=== PATIENT | male | born 1985 | race Hispanic/Latino ===

== ENCOUNTER 2024-10-18 17:13 | Emergency (ER) | payer SELFPAY ==
--- NOTE | ~2024-10-18 | XR_ITS ---
HISTORY: pain generalized rt foot. no injury COMPARISON: None TECHNIQUE: 3 views of the right foot were performed FINDINGS: No acute fracture or dislocation is appreciated. No significant degenerative disease is noted. The base of the fifth metatarsal is intact. No calcaneal spur is noted. No significant soft tissue swelling is present. IMPRESSION: Unremarkable radiographic evaluation of the right foot, as detailed above Reviewed, dictated and finalized at location A. IMPRESSION: Unremarkable radiographic evaluation of the right foot, as detaile d above
[2024-10-18 17:24] VITALS: BP 151/98; PULSE 108; RESP 16; TEMP 36.4; O2SAT 98
--- NOTE | 2024-10-18 17:38 | ED.LOWEXIN ---
HPI - Extremity Injury (Lower) General Chief Complaint: Extremity Injury, Lower Stated Complaint: FOOT PAIN Source: patient Mode of arrival: ambulatory Limitations: no limitations History of Present Illness HPI Narrative: Patient is a 39 year old male who presents to the clinic with complaints of right foot pain with walking for 8 days. He denies having any injury. He states that the last time this happened was 6 to 7 years ago. At that time he was diagnosed with high triglycerides and told it was related to a circulation issue. He has not been taking his cholesterol medication. Denies any numbness, tingling, or radiation of pain. Related Data Home Medications ?Medication ?Instructions ?Recorded ?Confirmed ?Last Taken ?Type No Home Medications 10/18/24 10/18/24 Unknown History Allergies Allergy/AdvReac Type Severity Reaction Status Date / Time No Known Drug Allergies Allergy none Verified 10/18/24 17:37 Review of Systems Review of Systems: CONSTITUTIONAL: Denies body aches, fever, chills EYES: Denies visual changes ENT: Denies rhinorrhea, congestion CARDIOVASCULAR: Denies chest pain, palpitations, or edema. RESPIRATORY: Denies cough or dyspnea. SKIN: Denies rash, itching, or wounds. MUSCULOSKELETAL: Denies back pain, joint pain, or myalgia. Reports right foot pain. NEUROLOGIC: Denies headache, numbness, tingling, or weakness. All systems reviewed & are unremarkable except as noted in HPI and below PMFSH Comments At time of signature, I have reviewed and agree with nursing past medical, surgical, social and family history unless otherwise noted. Please see nursing chart for further information. There is no relevant family history pertinent to the presenting complaint. Exam Narrative: MUSCULOSKELETAL EXAM GENERAL: Well-appearing, well-nourished, and in no acute distress. HEAD: Normocephalic, atraumatic. NECK: Supple. CHEST: Speaks in full sentences. No respiratory distress. HEART: Regular rate and rhythm. Normal and equal peripheral pulses. EXTREMITIES: Right foot has normal strength and sensation, normal range of motion with flexion/extension, but endorses pain with walking. No edema or ecchymosis, No point tenderness. No open wounds, skin tenting, or obvious deformity; alignment normal, pulse palpable and equal bilaterally, skin warm, dry, pink. Capillary refill less than 3 seconds. Distal sensation intact. SKIN: Warm, dry, no rash. NEURO: Alert and oriented x3. PSYCH: Normal mood and affect Course Course Level of Care: Express Care Visit Vital Signs Vital signs: Vital Signs Temperature 97.5 F L 10/18/24 17:24 Pulse Rate 108 H 10/18/24 17:24 Respiratory Rate 16 10/18/24 17:24 Blood Pressure 151/98 H 10/18/24 17:24 Pulse Oximetry 98 10/18/24 17:24 Oxygen Delivery Room Air 10/18/24 17:24 Temperature 97.5 F L 10/18/24 17:24 Pulse Rate 108 H 10/18/24 17:24 Respiratory Rate 16 10/18/24 17:24 Blood Pressure 151/98 H 10/18/24 17:24 Pulse Oximetry 98 10/18/24 17:24 Oxygen Delivery Room Air 10/18/24 17:24 Reviewed. MDM - Extremity Injury (Lower) MDM Narrative Medical decision making narrative: Discussed physical exam findings and xray. Jerardo wrap for support. Advised supportive measures and signs/symptoms to go to the ER. Discussed with patient the need to follow up regarding triglycerides with PCP. PCP list provided to patient. Exam WNL. Pt is appropriate for outpatient treatment and follow up. Differential Diagnosis Differential diagnosis: Likely puncture wound of foot, fracture of toe and other (facture of foot, ) Critical Care Time Critical Care Time Critical Care Time: No Discharge Plan Discharge Clinical Impression: Acute foot pain Patient Disposition: Home Condition: Stable Instructions: Foot Sprain (ED) Additional Instructions: Descanse. Evite correr, caminar en exceso o cualquier cosa que empeore los s?ntomas. Tylenol 1000 mg cada 8 horas seg?n sea necesario. Alternar hielo/calor en la jeffrey afectada. Parche de lidoca?na o analg?sico Salon Pas, o usar crema analg?heber violeta Icy/Hot o Biofreeze. Consulte con torrez m?dico de cabecera seg?n sea necesario en juanito semana. Consulte la lista proporcionada. Acuda a urgencias si los s?ntomas empeoran o presenta alguna inquietud. Rest. Avoid running or excessive walking-- or anything that worsens the symptoms Tylenol 1000mg every 8 hours as needed Alternate ice/heat to the site. Lidocaine or salon pas pain patch or use pain cream like icy/hot or biofreeze. Follow up with your primary care provider as needed in 1 week -- Please see list provided. Go to the ER for worsening symptoms or concerns Patient Language: Slovak Prescriptions: No Action No Home Medications Follow-up/Referrals: PHYSICIAN,SUPERVISOR [employer] [Primary Care Provider] - Time of Disposition: 17:59
== END 2024-10-18 18:10 | disposition home or self-care (01) ==
DX: M79.671 Pain in right foot (principal)
CPT/HCPCS: 73630; 99203; G0463